=== PATIENT | male | born 1965 | race Caucasian/White ===

== ENCOUNTER → 2019-09-19 | Outpatient (CLI) | payer OTHER ==
[~2019-09-19] MED LIST: ACYC800 PO; ALBU90OI INH; ANTIINFLAMMATORY; CYCL10 PO; ESOM20; MECL25 PO; OXYACE5T PO; PRED20 PO; PREG50 PO; PROP60 PO; SULTRIDS PO; SUMA6I; TRAM50 PO; Ultram50 MG PO; Zanaflex2 M1 PO; [UNRECOGNIZED DRUG - OTHER]
[2019-09-21 07:08] LABS: COTININE Negative ng/mL (Cutoff=300)
== END ==
LOC: LAB 13:34 → LAB SHORT 13:34
PROVIDERS: Orthopaedic Surgery Orthopaedic Surgery of the Spine
DX: T85.898A Other specified complication of other internal prosthetic devices, implants and grafts, initial encounter (principal); M54.12 Radiculopathy, cervical region; M48.02 Spinal stenosis, cervical region; M54.2 Cervicalgia; Z98.1 Arthrodesis status